=== PATIENT | female | born 1970 ===

== ENCOUNTER 2021-11-18 06:46 | Day surgery (SDC) | payer OTHER | END 2021-11-18 14:45 | disposition home or self-care (01) | LOC: AMB-ENDOS 06:46 | PROVIDERS: ATTEND Colon & Rectal Surgery | DX: K62.5 Hemorrhage of anus and rectum (principal); I10 Essential (primary) hypertension; E03.9 Hypothyroidism, unspecified; K59.09 Other constipation ==